=== PATIENT | male | born 1935 | race Caucasian/White ===

== ENCOUNTER 2017-06-07 10:46 | Emergency (ER) | payer BC, MEDICARE ==
[~2017-06-07] VITALS: Ht 170.2 cm; Wt 72.5 kg
[~2017-06-07 10:46] MED LIST: ALLO300T PO; ASCO10004 PO; ASPI1CPM9 PO; ATEN25TA PO; ATOR40TA78 PO; CALC1CAP8 PO; CARB1TAB22 PO; CETI10TA18 PO; ENTA200T22 PO; ESOM40CA PO; HYDR-3240 PO; MAGN100T PO; MESA1.2T PO; MULT-82 PO; PRAM3TAB PO; VITA400C43 PO; [UNRECOGNIZED DRUG - OTHER] PO; desmopressin PO; will bring a list
[2017-06-07] MEDS ORDERED: KETOROLAC 30 MG/1 ML IVPush STA (11:19)
[2017-06-07] MEDS ORDERED: SODIUM CHLORIDE 0.9% 1,000 ML IV ONE (11:19)
[2017-06-07] MEDS ORDERED: SODIUM CHLORIDE FLUSH 10ML SYR IVF ONE (11:30)
[2017-06-07] MEDS ORDERED: KETOROLAC 30 MG/1 ML ONE (11:44)
[2017-06-07 11:54] LABS: ASPARTATE AMINO TRANSFERASE 15 U/L (15-37); BLOOD UREA NITROGEN 24 mg/dL (7-18)
[2017-06-07 12:01] LABS: IS PT STATUS REG ER OR PRE ER? YES
[2017-06-07] MEDS ORDERED: OMNIPAQUE 350 MG/ML, 100ML BOTTLE ONE (12:47)
[2017-06-07 12:58] VITALS: BP 134/77
== END 2017-06-07 13:46 | disposition home or self-care (01) ==
LOC: ED 13:40
DX: R07.89 Other chest pain (principal); G20 Parkinson's disease
CPT/HCPCS: 36415; 71010; 71275; 80053; 84484; 85025; 85379; 85610; 85730; 93005; 96361; 96374; 99285; J1885; J7030; Q9967

== ENCOUNTER 2018-02-21 17:10 | Emergency (ER) | payer MEDICARE ==
[~2018-02-21] VITALS: Ht 170.2 cm; Wt 69.0 kg
[~2018-02-21 17:10] MED LIST changes: +MULT-224 PO; -MULT-82 PO
[2018-02-21 17:14] VITALS: BP 136/84
== END 2018-02-21 18:55 | disposition home or self-care (01) ==
LOC: ED 18:32
DX: S10.93XA Contusion of unspecified part of neck, initial encounter (principal); I10 Essential (primary) hypertension; G20 Parkinson's disease; Z88.8 Allergy status to other drugs, medicaments and biological substances; X58.XXXA Exposure to other specified factors, initial encounter; Y93.89 Activity, other specified; Y99.8 Other external cause status; Y92.89 Other specified places as the place of occurrence of the external cause
CPT/HCPCS: 72040; 99284

== ENCOUNTER 2018-04-05 16:52 | Emergency (ER) | payer MEDICARE ==
[~2018-04-05] VITALS: Ht 170.2 cm; Wt 70.0 kg
[2018-04-05 17:46] VITALS: BP 128/75
[2018-04-05] MEDS ORDERED: IBUPROFEN 200 MG TABLET PO ONE (19:00)
== END 2018-04-05 19:03 | disposition home or self-care (01) ==
LOC: ED 18:46
DX: S22.31XA Fracture of one rib, right side, initial encounter for closed fracture (principal); I10 Essential (primary) hypertension; G20 Parkinson's disease; W18.39XA Other fall on same level, initial encounter; Y93.89 Activity, other specified; Y92.098 Other place in other non-institutional residence as the place of occurrence of the external cause; Y99.8 Other external cause status
CPT/HCPCS: 71250; 99284

== ENCOUNTER → 2018-04-19 | Outpatient (CLI) | payer MEDICARE ==
[~2018-04-19] MED LIST changes: +ASPI1CPM7 PO; +CA C1TAB60 PO; +CARB15DR7 EACHEYE; +CYCL1DRO EACHEYE; +FLUT1DIS IH; +MOME17SP PO; +SAFI50TA PO; +SILD50TA PO; +TIOT18CA INH; +VITA100C8 PO
== END | disposition home or self-care (01) ==
LOC: CVU 13:13
PROVIDERS: ATTEND Internal Medicine Cardiovascular Disease
DX: I65.23 Occlusion and stenosis of bilateral carotid arteries (principal); I25.10 Atherosclerotic heart disease of native coronary artery without angina pectoris; G20 Parkinson's disease; E78.5 Hyperlipidemia, unspecified; I10 Essential (primary) hypertension
CPT/HCPCS: 93306; 93880

== ENCOUNTER 2018-04-29 16:09 | Emergency (ER) | payer MEDICARE ==
[~2018-04-29] VITALS: Ht 170.2 cm; Wt 67.1 kg
[~2018-04-29 16:09] MED LIST changes: -ASPI1CPM7 PO; -CA C1TAB60 PO; -CARB15DR7 EACHEYE; -CYCL1DRO EACHEYE; -FLUT1DIS IH; -MOME17SP PO; -SAFI50TA PO; -SILD50TA PO; -TIOT18CA INH; -VITA100C8 PO
[2018-04-29] MEDS ORDERED: CARBIDOPA/LEVODOPA 25 MG/100 MG TABLET PO ONE (18:30)
[2018-04-29 18:54] VITALS: BP 164/99
== END 2018-04-29 18:57 | disposition home or self-care (01) ==
LOC: ED 18:34
DX: S00.83XA Contusion of other part of head, initial encounter (principal); I10 Essential (primary) hypertension; W19.XXXA Unspecified fall, initial encounter; Y93.89 Activity, other specified; Y92.488 Other paved roadways as the place of occurrence of the external cause; Y99.8 Other external cause status
CPT/HCPCS: 70450; 99284

== ENCOUNTER 2018-05-01 19:15 | Inpatient (IN) | payer MEDICARE ==
[~2018-05-01] VITALS: Ht 152.4 cm; Wt 56.8 kg
[2018-05-01 20:21] LABS: BASOPHILS # (AUTO) 0.02 x10^3/uL (0-0.1); BASOPHILS % (AUTO) 0 % (0-1); EOSINOPHILS # (AUTO) 0.06 x10^3/uL (0-0.4); EOSINOPHILS % (AUTO) 1 % (1-7); LYMPHOCYTES # (AUTO) 1.54 x10^3/uL (1-3.4); LYMPHOCYTES % (AUTO) 13 % (22-44); MD NO; MEAN CORPUSCULAR HEMOGLOBIN 31.5 pg (27.5-34.5); MEAN CORPUSCULAR HGB CONC 34.1 g/dL (33.2-36.2); MEAN CORPUSCULAR VOLUME 92.4 fL (81-97); MEAN PLATELET VOLUME 7.7 fL (7.4-10.4); MONOCYTES # (AUTO) 0.71 x10^3/uL (0.2-0.8); MONOCYTES % (AUTO) 6 % (2-9); NEUTROPHILS # (AUTO) 9.35 x10^3/uL (1.8-6.8); NEUTROPHILS % (AUTO) 80 % (42-75); PLATELET COUNT 217 x10^3/uL (130-400); RED BLOOD COUNT 3.85 x10^6/uL (4.38-5.82); RED CELL DISTRIBUTION WIDTH 13.1 % (9.4-14.8)
[2018-05-01 20:29] LABS: INTERNATIONAL NORMALIZED RATIO 1.17 (0.93-1.1)
[2018-05-01 20:31] LABS: ALBUMIN 3.5 g/dL (3.4-5.0); ANION GAP 8 mmol/L (5-15); CALCIUM 8.1 mg/dL (8.5-10.1); CHLORIDE 107 mmol/L (98-107); CREATININE 1.45 mg/dL (0.7-1.3)
[2018-05-01] MEDS ORDERED: SODIUM CHLORIDE 0.9% 1,000 ML IV ONE (21:21)
[2018-05-01] MEDS ORDERED: ONDANSETRON 2MG/ML, 2ML IVPush PRN ×2 (21:30→23:00)
[2018-05-01] MEDS ORDERED: SAFI50TA PO (21:44)
[2018-05-01] MEDS: LEVETIRACETAM 500 MG in SODIUM CHLORIDE 0.9% 100 ML IV SCH (22:00)
[2018-05-01] MEDS ORDERED: MAGNESIUM GLYCINATE 100 MG HOMEMEDPO SCH (23:00)
[2018-05-01] MEDS ORDERED: POLYETHYLENE GLYCOL 17 GM PACKET PO PRN (23:00)
[2018-05-01] MEDS ORDERED: ACETAMINOPHEN 325 MG TABLET PO PRN (23:00)
[2018-05-02] MEDS: SODIUM CHLORIDE 0.9% 1,000 ML IV SCH ×2 (00:34→14:39)
[2018-05-02] MEDS: CARBIDOPA/LEVODOPA 25 MG/100 MG TABLET PO SCH ×6 (00:34→21:38)
[2018-05-02 04:00] VITALS: BP 138/74
[2018-05-02 04:33] LABS: BASOPHILS # (AUTO) 0.02 x10^3/uL (0-0.1); BASOPHILS % (AUTO) 0 % (0-1); EOSINOPHILS # (AUTO) 0.18 x10^3/uL (0-0.4); EOSINOPHILS % (AUTO) 2 % (1-7); LYMPHOCYTES # (AUTO) 1.77 x10^3/uL (1-3.4); LYMPHOCYTES % (AUTO) 16 % (22-44); MD NO; MEAN CORPUSCULAR HEMOGLOBIN 30.6 pg (27.5-34.5); MEAN CORPUSCULAR HGB CONC 33.1 g/dL (33.2-36.2); MEAN CORPUSCULAR VOLUME 92.3 fL (81-97); MONOCYTES # (AUTO) 0.82 x10^3/uL (0.2-0.8); MONOCYTES % (AUTO) 8 % (2-9); NEUTROPHILS # (AUTO) 7.97 x10^3/uL (1.8-6.8); NEUTROPHILS % (AUTO) 74 % (42-75); PLATELET COUNT 203 x10^3/uL (130-400); RED BLOOD COUNT 3.97 x10^6/uL (4.38-5.82)
[2018-05-02 04:44] LABS: ANION GAP 7 mmol/L (5-15); CALCIUM 8.5 mg/dL (8.5-10.1); CHLORIDE 108 mmol/L (98-107); CREATININE 1.19 mg/dL (0.7-1.3)
[2018-05-02] MEDS: hydrALAzine 20 MG/ML, 1ML IV PRN ×2 (08:42→22:29)
[2018-05-02] MEDS: MESALAMINE 1.2 GM TABLET.DR PO SCH (08:58)
[2018-05-02] MEDS: ALLOPURINOL 300 MG TABLET PO SCH (09:09)
[2018-05-02] MEDS: PANTOPROZOLE 40MG TABLET PO SCH (09:10)
[2018-05-02] MEDS: MULTIVITAMIN 1 TABLET PO SCH (09:10)
[2018-05-02] MEDS: CETIRIZINE 10 MG TABLET PO SCH ×2 (09:11→21:39)
[2018-05-02] MEDS: ATENOLOL 25 MG TABLET PO SCH (09:11)
[2018-05-02] MEDS: ASCORBIC ACID 500 MG TABLET PO SCH (09:11)
[2018-05-02] MEDS ORDERED: FLUT1DIS IH (10:58)
[2018-05-02] MEDS ORDERED: CA C1TAB60 PO (11:00)
[2018-05-02] MEDS: LEVETIRACETAM 500 MG in SODIUM CHLORIDE 0.9% 100 ML IV SCH ×2 (11:37→21:38)
[2018-05-02] MEDS ORDERED: CYCL1DRO EACHEYE (18:46)
[2018-05-02] MEDS ORDERED: SILD50TA PO (18:46)
[2018-05-02] MEDS ORDERED: ENTA200T22 PO (18:46)
[2018-05-02] MEDS ORDERED: MOME17SP PO (18:46)
[2018-05-02] MEDS ORDERED: CARB15DR7 EACHEYE (18:46)
[2018-05-02] MEDS ORDERED: VITA100C8 PO (18:46)
[2018-05-02] MEDS ORDERED: TIOT18CA INH (18:46)
[2018-05-02] MEDS ORDERED: ASPI1CPM7 PO (18:46)
[2018-05-02] MEDS: ATORVASTATIN 40 MG TABLET PO SCH (21:38)
[2018-05-03 05:00] VITALS: BP 137/71
[2018-05-03] MEDS: SODIUM CHLORIDE 0.9% 1,000 ML IV SCH ×2 (05:50→11:51)
[2018-05-03] MEDS: CARBIDOPA/LEVODOPA 25 MG/100 MG TABLET PO SCH ×5 (05:52→21:27)
[2018-05-03] MEDS: MESALAMINE 1.2 GM TABLET.DR PO SCH (09:05)
[2018-05-03] MEDS: ASCORBIC ACID 500 MG TABLET PO SCH (09:05)
[2018-05-03] MEDS: CETIRIZINE 10 MG TABLET PO SCH ×2 (09:06→21:27)
[2018-05-03] MEDS: PANTOPROZOLE 40MG TABLET PO SCH (09:06)
[2018-05-03] MEDS: MULTIVITAMIN 1 TABLET PO SCH (09:06)
[2018-05-03] MEDS: ATENOLOL 25 MG TABLET PO SCH (09:06)
[2018-05-03] MEDS: ALLOPURINOL 300 MG TABLET PO SCH (09:06)
[2018-05-03] MEDS: LEVETIRACETAM 500 MG in SODIUM CHLORIDE 0.9% 100 ML IV SCH ×2 (11:51→21:33)
[2018-05-03 12:07] VITALS: BP 156/88
[2018-05-03 19:21] VITALS: BP 149/79
[2018-05-03] MEDS: RESTASIS 0.05% OP SCH (21:00)
[2018-05-03] MEDS: ATORVASTATIN 40 MG TABLET PO SCH (21:27)
[2018-05-04 01:06] VITALS: BP 141/75
[2018-05-04] MEDS: SODIUM CHLORIDE 0.9% 1,000 ML IV SCH (02:02)
[2018-05-04] MEDS: CARBIDOPA/LEVODOPA 25 MG/100 MG TABLET PO SCH ×5 (05:29→20:51)
[2018-05-04 07:38] VITALS: BP 125/70
[2018-05-04] MEDS: ATENOLOL 25 MG TABLET PO SCH (09:14)
[2018-05-04] MEDS: PANTOPROZOLE 40MG TABLET PO SCH (09:14)
[2018-05-04] MEDS: CETIRIZINE 10 MG TABLET PO SCH ×2 (09:14→20:51)
[2018-05-04] MEDS: MULTIVITAMIN 1 TABLET PO SCH (09:14)
[2018-05-04] MEDS: ASCORBIC ACID 500 MG TABLET PO SCH (09:14)
[2018-05-04] MEDS: MESALAMINE 1.2 GM TABLET.DR PO SCH (09:14)
[2018-05-04] MEDS: LEVETIRACETAM 500 MG in SODIUM CHLORIDE 0.9% 100 ML IV SCH (09:14)
[2018-05-04] MEDS: ALLOPURINOL 300 MG TABLET PO SCH (09:15)
[2018-05-04 13:57] VITALS: BP 148/80
[2018-05-04] MEDS ORDERED: TAMSULOSIN 0.4 MG CAP.ER.24H ONE (18:24)
[2018-05-04] MEDS ORDERED: TAMSULOSIN 0.4 MG CAP.ER.24H PO ONE (18:30)
[2018-05-04 19:33] VITALS: BP 143/76
[2018-05-04] MEDS: ATORVASTATIN 40 MG TABLET PO SCH (20:51)
[2018-05-04] MEDS: RESTASIS 0.05% OP SCH (20:51)
[2018-05-05 01:26] VITALS: BP 163/88
[2018-05-05] MEDS: LEVETIRACETAM 500 MG in SODIUM CHLORIDE 0.9% 100 ML IV SCH ×2 (01:31→14:59)
[2018-05-05 05:46] LABS: BASOPHILS # (AUTO) 0.02 x10^3/uL (0-0.1); BASOPHILS % (AUTO) 0 % (0-1); EOSINOPHILS # (AUTO) 0.11 x10^3/uL (0-0.4); EOSINOPHILS % (AUTO) 1 % (1-7); LYMPHOCYTES # (AUTO) 1.57 x10^3/uL (1-3.4); LYMPHOCYTES % (AUTO) 17 % (22-44); MD NO; MEAN CORPUSCULAR HEMOGLOBIN 31.2 pg (27.5-34.5); MEAN CORPUSCULAR HGB CONC 33.4 g/dL (33.2-36.2); MEAN CORPUSCULAR VOLUME 93.2 fL (81-97); MEAN PLATELET VOLUME 7.7 fL (7.4-10.4); MONOCYTES # (AUTO) 0.59 x10^3/uL (0.2-0.8); MONOCYTES % (AUTO) 7 % (2-9); NEUTROPHILS # (AUTO) 6.84 x10^3/uL (1.8-6.8); NEUTROPHILS % (AUTO) 75 % (42-75); PLATELET COUNT 227 x10^3/uL (130-400); RED BLOOD COUNT 4.19 x10^6/uL (4.38-5.82); RED CELL DISTRIBUTION WIDTH 13.1 % (9.4-14.8)
[2018-05-05 05:56] LABS: ANION GAP 5 mmol/L (5-15); CALCIUM 8.6 mg/dL (8.5-10.1); CHLORIDE 107 mmol/L (98-107)
[2018-05-05 05:57] LABS: CREATININE 1.02 mg/dL (0.7-1.3)
[2018-05-05] MEDS: CARBIDOPA/LEVODOPA 25 MG/100 MG TABLET PO SCH ×5 (06:06→20:27)
[2018-05-05] MEDS ORDERED: POTASSIUM CHLORIDE 10% 20 MEQ/15 ML UDC PO ONE (07:00)
[2018-05-05 07:09] VITALS: BP 137/81
[2018-05-05] MEDS ORDERED: POTASSIUM CHLORIDE 20 MEQ PACKET ONE (08:34)
[2018-05-05] MEDS: MULTIVITAMIN 1 TABLET PO SCH (09:00)
[2018-05-05] MEDS: ATENOLOL 25 MG TABLET PO SCH (09:00)
[2018-05-05] MEDS: PANTOPROZOLE 40MG TABLET PO SCH (09:40)
[2018-05-05] MEDS: MESALAMINE 1.2 GM TABLET.DR PO SCH (09:40)
[2018-05-05] MEDS: ALLOPURINOL 300 MG TABLET PO SCH (09:40)
[2018-05-05] MEDS: ASCORBIC ACID 500 MG TABLET PO SCH (09:41)
[2018-05-05] MEDS: CETIRIZINE 10 MG TABLET PO SCH ×2 (09:41→20:27)
[2018-05-05 12:09] VITALS: BP 118/71
[2018-05-05] MEDS: ATORVASTATIN 40 MG TABLET PO SCH (20:27)
[2018-05-05] MEDS: RESTASIS 0.05% OP SCH (20:27)
[2018-05-05 22:00] VITALS: BP 147/83
[2018-05-05 22:36] VITALS: BP 128/86
[2018-05-06 01:38] VITALS: BP 164/96
[2018-05-06] MEDS: LEVETIRACETAM 500 MG in SODIUM CHLORIDE 0.9% 100 ML IV SCH ×2 (01:39→14:44)
[2018-05-06] MEDS: hydrALAzine 20 MG/ML, 1ML IV PRN (01:40)
[2018-05-06 03:07] VITALS: BP 126/71
[2018-05-06 05:58] LABS: ALBUMIN 2.9 g/dL (3.4-5.0); ANION GAP 5 mmol/L (5-15); CALCIUM 8.3 mg/dL (8.5-10.1); CHLORIDE 107 mmol/L (98-107); CREATININE 0.88 mg/dL (0.7-1.3)
[2018-05-06] MEDS: CARBIDOPA/LEVODOPA 25 MG/100 MG TABLET PO SCH ×5 (06:30→21:13)
[2018-05-06] MEDS ORDERED: POTASSIUM CHLORIDE 20 MEQ TAB.ER.PRT PO ONE (06:30)
[2018-05-06 07:26] VITALS: BP 110/69
[2018-05-06] MEDS: MULTIVITAMIN 1 TABLET PO SCH (09:15)
[2018-05-06] MEDS: MESALAMINE 1.2 GM TABLET.DR PO SCH (09:15)
[2018-05-06] MEDS: PANTOPROZOLE 40MG TABLET PO SCH (09:15)
[2018-05-06] MEDS: ALLOPURINOL 300 MG TABLET PO SCH (09:16)
[2018-05-06] MEDS: ASCORBIC ACID 500 MG TABLET PO SCH (09:16)
[2018-05-06] MEDS: CETIRIZINE 10 MG TABLET PO SCH ×2 (09:16→21:09)
[2018-05-06] MEDS: ATENOLOL 25 MG TABLET PO SCH (09:20)
[2018-05-06 12:26] VITALS: BP 122/76
[2018-05-06 19:35] VITALS: BP 128/71
[2018-05-06] MEDS: RESTASIS 0.05% OP SCH (21:00)
[2018-05-06] MEDS: ATORVASTATIN 40 MG TABLET PO SCH (21:09)
[2018-05-07 01:17] VITALS: BP 157/88
[2018-05-07] MEDS: LEVETIRACETAM 500 MG in SODIUM CHLORIDE 0.9% 100 ML IV SCH (02:25)
[2018-05-07] MEDS: hydrALAzine 20 MG/ML, 1ML IV PRN (02:25)
[2018-05-07 03:45] VITALS: BP 130/70
[2018-05-07 05:26] LABS: ALBUMIN 3.2 g/dL (3.4-5.0); ANION GAP 9 mmol/L (5-15); CALCIUM 8.7 mg/dL (8.5-10.1); CHLORIDE 106 mmol/L (98-107)
[2018-05-07 05:27] LABS: CREATININE 0.94 mg/dL (0.7-1.3)
[2018-05-07] MEDS: CARBIDOPA/LEVODOPA 25 MG/100 MG TABLET PO SCH ×2 (05:40→09:52)
[2018-05-07 07:54] VITALS: BP 105/56
[2018-05-07] MEDS: ATENOLOL 25 MG TABLET PO SCH (09:00)
[2018-05-07] MEDS: ALLOPURINOL 300 MG TABLET PO SCH (09:00)
[2018-05-07] MEDS: PANTOPROZOLE 40MG TABLET PO SCH (09:50)
[2018-05-07] MEDS: ASCORBIC ACID 500 MG TABLET PO SCH (09:51)
[2018-05-07] MEDS: CETIRIZINE 10 MG TABLET PO SCH (09:54)
[2018-05-07] MEDS: MULTIVITAMIN 1 TABLET PO SCH (09:55)
[2018-05-07] MEDS: MESALAMINE 1.2 GM TABLET.DR PO SCH (09:56)
[2018-05-07] MEDS ORDERED: LEVE500T53 PO (11:33)
[2018-05-07 13:02] VITALS: BP 143/72
[2018-05-07 14:21] VITALS: BP 116/73
== END 2018-05-07 16:14 | DRG 85 ==
LOC: ED 20:20 → EDIP 21:23 → CCU 23:10 → 4WST 05-03 11:26
PROVIDERS: ADMIT Hospitalist; ATTEND Hospitalist
PROC: 4B00XVZ Measurement of Central Nervous Stimulator, External Approach (ICD-10-PCS; principal; 2018-05-02)
DX: S06.5X0A Traumatic subdural hemorrhage without loss of consciousness, initial encounter (principal); N17.0 Acute kidney failure with tubular necrosis; E44.0 Moderate protein-calorie malnutrition; R47.01 Aphasia; G20 Parkinson's disease; Z87.891 Personal history of nicotine dependence; Z88.8 Allergy status to other drugs, medicaments and biological substances; Z68.24 Body mass index [BMI] 24.0-24.9, adult; I10 Essential (primary) hypertension; K21.9 Gastro-esophageal reflux disease without esophagitis; M10.9 Gout, unspecified; R29.6 Repeated falls; W18.39XA Other fall on same level, initial encounter; Y93.89 Activity, other specified; Y92.89 Other specified places as the place of occurrence of the external cause; Y99.8 Other external cause status; Z90.79 Acquired absence of other genital organ(s); R33.9 Retention of urine, unspecified
CPT/HCPCS: 36415; 70450; 80047; 80048; 82040; 83735; 84100; 85025; 85520; 85610; 85730; 87081; 93005; 99291; J1953; 92523-GN; G0515-GN; J0360; J7030

== ENCOUNTER 2018-06-08 21:26 | Inpatient (IN) | payer MEDICARE ==
[~2018-06-08] VITALS: Ht 170.2 cm; Wt 67.4 kg
[~2018-06-08 21:26] MED LIST changes: +ASPI1CPM7 PO; +CA C1TAB60 PO; +CARB15DR7 EACHEYE; +CYCL1DRO EACHEYE; +FLUT1DIS IH; +LEVE500T53 PO; +MOME17SP PO; +SAFI50TA PO; +SILD50TA PO; +TIOT18CA INH; +VITA100C8 PO
[2018-06-08] MEDS ORDERED: ACETAMINOPHEN 650 MG SUPP PR PRN (22:00)
[2018-06-08] MEDS ORDERED: SODIUM CHLORIDE 0.9% 1,000ML IVBOLUS ONE (22:00)
[2018-06-08] MEDS ORDERED: PIPERACILLIN/TAZO/PMX 3.375GM 50 ML IVPB ONE (22:00)
[2018-06-08] MEDS ORDERED: VANCOMYCIN PER PHARMACY MC ONE (22:00)
[2018-06-08 22:17] LABS: MEAN CORPUSCULAR HGB CONC 33.9 g/dL (33.2-36.2); MEAN CORPUSCULAR VOLUME 91.5 fL (81-97); MEAN PLATELET VOLUME 7.6 fL (7.4-10.4); PLATELET COUNT 169 x10^3/uL (130-400); RED BLOOD COUNT 3.79 x10^6/uL (4.38-5.82); RED CELL DISTRIBUTION WIDTH 14.1 % (9.4-14.8)
[2018-06-08] MEDS ORDERED: ACETAMINOPHEN 650 MG SUPP ONE (22:28)
[2018-06-08 22:29] LABS: ALANINE AMINOTRANSFERASE 12 U/L (12-78); ALBUMIN 2.6 g/dL (3.4-5.0); ANION GAP 4 mmol/L (5-15); CALCIUM 7.8 mg/dL (8.5-10.1); CHLORIDE 111 mmol/L (98-107); CREATININE 1.43 mg/dL (0.7-1.3)
[2018-06-08] MEDS ORDERED: PHARMACOKINETIC CONSULTATION MC ONE (22:30)
[2018-06-08] MEDS ORDERED: VANCOMYCIN 1,400 MG in SODIUM CHLORIDE 0.9% 250 ML IV ONE (22:30)
[2018-06-08] MEDS ORDERED: PIPERACILLIN/TAZO/PMX 3.375GM 50 ML ONE (22:31)
[2018-06-08 22:33] LABS: ALKALINE PHOSPHATASE 86 U/L (45-117); BILIRUBIN,TOTAL 0.6 mg/dL (0.2-1.0); TOTAL PROTEIN 5.5 g/dL (6.4-8.2); TROPONIN I 0.041 ng/mL (0.000-0.045)
[2018-06-08 22:33] LABS: MICROSCOPIC AUTO
[2018-06-08 22:44] LABS: CULTURE INDICATED? YES
[2018-06-08 22:49] LABS: BASOPHILS % (AUTO) 0 % (0-1); EOSINOPHILS % (AUTO) 0 % (1-7); LYMPHOCYTES # (AUTO) 0.34 x10^3/uL (1-3.4); LYMPHOCYTES % (AUTO) 2 % (22-44); MD SCAN; MONOCYTES # (AUTO) 0.15 x10^3/uL (0.2-0.8); MONOCYTES % (AUTO) 1 % (2-9); NEUTROPHILS # (AUTO) 17.86 x10^3/uL (1.8-6.8); NEUTROPHILS % (AUTO) 97 % (42-75)
[2018-06-08] MEDS ORDERED: SODIUM CHLORIDE 0.9% 1,000 ML IV ONE (23:32)
[2018-06-09] MEDS ORDERED: CALC300T5 PO (00:10)
[2018-06-09] MEDS ORDERED: OMEP-110 PO (00:10)
[2018-06-09] MEDS ORDERED: CETI10CA PO (00:10)
[2018-06-09] MEDS ORDERED: SODIUM CHLORIDE 0.9% 1,000 ML IV ONE (01:10)
[2018-06-09] MEDS ORDERED: BISACODYL 10 MG SUPP PR PRN (01:30)
[2018-06-09] MEDS ORDERED: ACETAMINOPHEN 325 MG TABLET PO PRN (01:30)
[2018-06-09] MEDS ORDERED: morphine SULFATE 10 MG/ML, 1ML IVPush PRN (01:30)
[2018-06-09] MEDS ORDERED: OXYcodone IR 5MG TABLET PO PRN (01:30)
[2018-06-09] MEDS ORDERED: ONDANSETRON 2MG/ML, 2ML IVPush PRN ×2 (01:30)
[2018-06-09] MEDS ORDERED: ENALAPRILAT 1.25 MG/ML, 2ML IVPush PRN (01:30)
[2018-06-09] MEDS ORDERED: POLYETHYLENE GLYCOL 17 GM PACKET PO PRN (01:30)
[2018-06-09] MEDS ORDERED: ONDANSETRON ODT 4 MG PO PRN (01:30)
[2018-06-09] MEDS ORDERED: LABETALOL 5MG/ML, 20ML IVPush PRN (01:30)
[2018-06-09] MEDS ORDERED: PROMETHAZINE 25 MG/ML, 1ML IM PRN (01:30)
[2018-06-09] MEDS ORDERED: DOCUSATE 100 MG CAPSULE PO PRN (01:30)
[2018-06-09] MEDS ORDERED: IPRATROPIUM 0.5 MG/2.5 ML INHA ONE (01:57)
[2018-06-09] MEDS ORDERED: ENTACAPONE 200 MG PO SCH (02:00)
[2018-06-09] MEDS ORDERED: CARBIDOPA/LEVODOPA 25 MG/100 MG TABLET PO SCH (02:00)
[2018-06-09] MEDS ORDERED: VANCOMYCIN PER PHARMACY MC PRN (02:00)
[2018-06-09 02:10] LABS: HEMOGLOBIN A1C 6.2 % (4.2-6.3)
[2018-06-09 02:12] LABS: FREE T4 (FREE THYROXINE) 1.25 ng/dL (0.76-1.46); THYROID STIMULATING HORMONE 1.44 mIU/L (0.358-3.740)
[2018-06-09] MEDS ORDERED: ENTACAPONE MC SCH (04:00)
[2018-06-09] MEDS ORDERED: PHARMACOKINETIC CONSULTATION MC ONE (04:00)
[2018-06-09] MEDS ORDERED: PHARMACOKINETIC MONITORING MC PRN (04:00)
[2018-06-09] MEDS: POTASSIUM CHLORIDE 40 MEQ in D5%-0.9% NACL 1,000 ML IV SCH ×3 (04:07→15:06)
[2018-06-09] MEDS: PIPERACILLIN/TAZO/PMX 3.375GM 50 ML IV SCH ×4 (04:31→22:19)
[2018-06-09] MEDS: IPRATROPIUM 0.5 MG/2.5 ML INHA NPPB SCH ×4 (06:20→20:51)
[2018-06-09] MEDS: HEPARIN 5,000 UNITS/ML, 1ML SQ SCH ×2 (08:00→17:17)
[2018-06-09] MEDS ORDERED: LEVETIRACETAM 500 MG TABLET PO SCH (09:00)
[2018-06-09] MEDS: MESALAMINE 1.2 GM TABLET.DR PO SCH (09:00)
[2018-06-09] MEDS ORDERED: MULTIVITAMIN 1 TABLET PO SCH (09:00)
[2018-06-09] MEDS ORDERED: CALCIUM/VITAMIN D3 250-125 TABLET PO SCH (09:00)
[2018-06-09] MEDS ORDERED: TEMPLATE NON-FORMULARY MED. (Esomeprazole Magnesium** (Nexium**) 40 MG) PO SCH (09:00)
[2018-06-09] MEDS ORDERED: ALLOPURINOL 300 MG TABLET PO SCH (09:00)
[2018-06-09] MEDS: FLUTICASONE/VILANTEROL 100-25MCG/INH INH SCH (09:00)
[2018-06-09] MEDS ORDERED: IPRATROPIUM 0.5 MG/2.5 ML INHA HHN SCH (09:00)
[2018-06-09] MEDS ORDERED: ASCORBIC ACID 500 MG TABLET PO SCH (09:00)
[2018-06-09] MEDS ORDERED: CALCIUM CARBONATE 500 MG TAB.CHEW PO SCH (09:00)
[2018-06-09] MEDS ORDERED: CETIRIZINE 10 MG TABLET PO SCH ×2 (09:00)
[2018-06-09] MEDS ORDERED: OMEPRAZOLE 20 MG CAPSULE.DR PO SCH (09:00)
[2018-06-09] MEDS: VITAMIN E 400 UNITS CAPSULE PO SCH (12:08)
[2018-06-09] MEDS ORDERED: ONDANSETRON ODT 4 MG NG PRN (12:42)
[2018-06-09] MEDS ORDERED: POLYETHYLENE GLYCOL 17 GM PACKET NG PRN (12:42)
[2018-06-09] MEDS ORDERED: ACETAMINOPHEN 650 MG/20.3 ML UDC NG PRN (13:00)
[2018-06-09] MEDS: ENTACAPONE 200 MG TABLET NG SCH ×3 (13:25→20:21)
[2018-06-09 14:22] LABS: MEAN CORPUSCULAR HEMOGLOBIN 30.5 pg (27.5-34.5); MEAN CORPUSCULAR HGB CONC 33.3 g/dL (33.2-36.2); MEAN CORPUSCULAR VOLUME 91.7 fL (81-97); PLATELET COUNT 161 x10^3/uL (130-400); RED BLOOD COUNT 3.76 x10^6/uL (4.38-5.82); RED CELL DISTRIBUTION WIDTH 14.3 % (9.4-14.8)
[2018-06-09 14:33] LABS: ALANINE AMINOTRANSFERASE 21 U/L (12-78); ALBUMIN 2.4 g/dL (3.4-5.0); ANION GAP 7 mmol/L (5-15); CALCIUM 7.7 mg/dL (8.5-10.1); CHLORIDE 114 mmol/L (98-107)
[2018-06-09 14:43] LABS: ALKALINE PHOSPHATASE 80 U/L (45-117); BILIRUBIN,TOTAL 0.5 mg/dL (0.2-1.0); CREATININE 1.23 mg/dL (0.7-1.3); TOTAL PROTEIN 5.6 g/dL (6.4-8.2)
[2018-06-09 15:22] LABS: MD YES
[2018-06-09 15:24] LABS: BAND#(MANUAL) 1.19 x10^3/uL; BANDS%(MANUAL) 6 % (0-7); LYMPH#(MANUAL) 0.99 x10^3/uL (1-3.4); LYMPHS% (MANUAL) 5 % (22-44); SEG#(MANUAL) 17.62 x10^3/uL (1.8-6.8); SEGS% (MANUAL) 89 % (42-75)
[2018-06-09 15:25] LABS: <PLATELET ESTIMATE> ADEQUATE; <PLT MORPHOLOGY> NORMAL PLT MORPH; TOXIC GRAN 1+
[2018-06-09] MEDS: CARBIDOPA/LEVODOPA 25 MG/100 MG TABLET NG SCH ×3 (17:42→20:20)
[2018-06-09] MEDS: CALCIUM/VITAMIN D3 250-125 TABLET NG SCH (20:23)
[2018-06-09] MEDS: CALCIUM CARBONATE 500 MG TAB.CHEW NG SCH (20:24)
[2018-06-09] MEDS: ATORVASTATIN 40 MG TABLET NG SCH (20:26)
[2018-06-09] MEDS: TEMPLATE NON-FORMULARY MED. (Cyclosporine (Restasis) 1 DROP) EACHEYE SCH (20:26)
[2018-06-09] MEDS ORDERED: DOCUSATE 50 MG/5 ML, 10ML UDC NG PRN (21:00)
[2018-06-09] MEDS ORDERED: LEVETIRACETAM 100 MG/ML ORAL SOL NG SCH (21:00)
[2018-06-09] MEDS ORDERED: POTASSIUM PHOSPHATE 44 MEQ in SODIUM CHLORIDE 0.9% 500 ML IV ONE (22:00)
[2018-06-09] MEDS ORDERED: MAGNESIUM SULFATE 4 GM in SODIUM CHLORIDE 0.9% 100 ML IV ONE (22:00)
[2018-06-09] MEDS ORDERED: MAGNESIUM SULFATE PMX 4GM/100M 100 ML IV ONE (22:39)
[2018-06-09] MEDS ORDERED: VANCOMYCIN 1,300 MG in SODIUM CHLORIDE 0.9% 250 ML IV SCH (23:00)
[2018-06-10] MEDS: HEPARIN 5,000 UNITS/ML, 1ML SQ SCH ×2 (01:25→07:55)
[2018-06-10] MEDS: IPRATROPIUM 0.5 MG/2.5 ML INHA NPPB SCH ×5 (02:56→21:50)
[2018-06-10 04:59] LABS: ALANINE AMINOTRANSFERASE 10 U/L (12-78); ALBUMIN 2.4 g/dL (3.4-5.0); ANION GAP 6 mmol/L (5-15); CALCIUM 8.2 mg/dL (8.5-10.1); CHLORIDE 115 mmol/L (98-107); CREATININE 1.13 mg/dL (0.7-1.3)
[2018-06-10 05:00] LABS: BASOPHILS % (AUTO) 0 % (0-1); EOSINOPHILS # (AUTO) 0.03 x10^3/uL (0-0.4); EOSINOPHILS % (AUTO) 0 % (1-7); LYMPHOCYTES # (AUTO) 0.65 x10^3/uL (1-3.4); LYMPHOCYTES % (AUTO) 5 % (22-44); MD NO; MEAN CORPUSCULAR HEMOGLOBIN 30.8 pg (27.5-34.5); MEAN CORPUSCULAR HGB CONC 33.5 g/dL (33.2-36.2); MEAN PLATELET VOLUME 8.4 fL (7.4-10.4); MONOCYTES # (AUTO) 0.38 x10^3/uL (0.2-0.8); MONOCYTES % (AUTO) 3 % (2-9); NEUTROPHILS # (AUTO) 11.76 x10^3/uL (1.8-6.8); NEUTROPHILS % (AUTO) 92 % (42-75); PLATELET COUNT 151 x10^3/uL (130-400); RED CELL DISTRIBUTION WIDTH 14.2 % (9.4-14.8)
[2018-06-10 05:02] LABS: ALKALINE PHOSPHATASE 85 U/L (45-117); BILIRUBIN,TOTAL 0.6 mg/dL (0.2-1.0); CHOL/HDL RATIO 2.7; CHOLESTEROL, TOTAL 76 mg/dL (140-239); HDL CHOL % 37 % (26-37); HDL CHOLESTEROL (DIRECT) 28 mg/dL (40-60); LDL CHOLESTEROL,CALCULATED 22 mg/dL (54-169); LDL/HDL RATIO 0.8 (0.5-3.0); TOTAL PROTEIN 5.7 g/dL (6.4-8.2); TRIGLYCERIDES 129 mg/dL (50-200); VLDL CHOLESTEROL 26 mg/dL (0-25)
[2018-06-10] MEDS: PIPERACILLIN/TAZO/PMX 3.375GM 50 ML IV SCH ×2 (05:37→11:35)
[2018-06-10] MEDS: CARBIDOPA/LEVODOPA 25 MG/100 MG TABLET NG SCH ×5 (05:42→21:03)
[2018-06-10] MEDS: ENTACAPONE 200 MG TABLET NG SCH ×5 (05:42→21:03)
[2018-06-10] MEDS ORDERED: PANTOPRAZOLE GRAN. PKT 40 MG NG SCH (07:30)
[2018-06-10] MEDS: ALLOPURINOL 300 MG TABLET NG SCH (08:58)
[2018-06-10] MEDS: CALCIUM/VITAMIN D3 250-125 TABLET NG SCH ×2 (08:58→21:03)
[2018-06-10] MEDS: VITAMIN E 400 UNITS CAPSULE PO SCH (08:58)
[2018-06-10] MEDS: CALCIUM CARBONATE 500 MG TAB.CHEW NG SCH ×2 (08:58→21:03)
[2018-06-10] MEDS: MESALAMINE 1.2 GM TABLET.DR PO SCH (08:58)
[2018-06-10] MEDS: ASCORBIC ACID 500 MG TABLET NG SCH (08:59)
[2018-06-10] MEDS: FLUTICASONE/VILANTEROL 100-25MCG/INH INH SCH (09:00)
[2018-06-10] MEDS: CETIRIZINE 1 MG/ML ORAL SOL NG SCH (09:01)
[2018-06-10] MEDS: MULTIVIT-MINERALS/IRON ORAL SOL NG SCH (09:01)
[2018-06-10] MEDS: TAMSULOSIN 0.4 MG CAP.ER.24H PO SCH (16:25)
[2018-06-10] MEDS: CEFTRIAXONE 2 GM in SODIUM CHLORIDE 0.9% 50 ML IV SCH (17:14)
[2018-06-10] MEDS: ENOXAPARIN 40 MG/0.4 ML SQ SCH (17:14)
[2018-06-10 19:40] VITALS: BP 129/81
[2018-06-10] MEDS: TEMPLATE NON-FORMULARY MED. (Cyclosporine (Restasis) 1 DROP) EACHEYE SCH (21:00)
[2018-06-10] MEDS: ATORVASTATIN 40 MG TABLET NG SCH (21:03)
[2018-06-11 00:20] VITALS: BP 109/76
[2018-06-11] MEDS ORDERED: HALOPERIDOL 5 MG/ML IV ONE (01:00)
[2018-06-11] MEDS: IPRATROPIUM 0.5 MG/2.5 ML INHA NPPB SCH ×4 (03:50→20:30)
[2018-06-11] MEDS: CARBIDOPA/LEVODOPA 25 MG/100 MG TABLET NG SCH ×2 (05:35→10:11)
[2018-06-11] MEDS: ENTACAPONE 200 MG TABLET NG SCH ×2 (05:36→10:17)
[2018-06-11 06:03] LABS: BASOPHILS # (AUTO) 0.01 x10^3/uL (0-0.1); BASOPHILS % (AUTO) 0 % (0-1); EOSINOPHILS # (AUTO) 0.04 x10^3/uL (0-0.4); EOSINOPHILS % (AUTO) 0 % (1-7); LYMPHOCYTES # (AUTO) 0.75 x10^3/uL (1-3.4); LYMPHOCYTES % (AUTO) 8 % (22-44); MD NO; MEAN CORPUSCULAR HEMOGLOBIN 30.4 pg (27.5-34.5); MEAN CORPUSCULAR HGB CONC 33.4 g/dL (33.2-36.2); MEAN CORPUSCULAR VOLUME 91.1 fL (81-97); MEAN PLATELET VOLUME 8.5 fL (7.4-10.4); MONOCYTES # (AUTO) 0.43 x10^3/uL (0.2-0.8); MONOCYTES % (AUTO) 4 % (2-9); NEUTROPHILS # (AUTO) 8.68 x10^3/uL (1.8-6.8); NEUTROPHILS % (AUTO) 88 % (42-75); PLATELET COUNT 158 x10^3/uL (130-400); RED BLOOD COUNT 3.95 x10^6/uL (4.38-5.82); RED CELL DISTRIBUTION WIDTH 14.4 % (9.4-14.8)
[2018-06-11 06:05] LABS: CHLORIDE 109 mmol/L (98-107)
[2018-06-11 06:21] LABS: ALANINE AMINOTRANSFERASE 13 U/L (12-78); ALBUMIN 2.5 g/dL (3.4-5.0); ALKALINE PHOSPHATASE 111 U/L (45-117); ANION GAP 10 mmol/L (5-15); BILIRUBIN,TOTAL 0.4 mg/dL (0.2-1.0); CALCIUM 8.1 mg/dL (8.5-10.1); CREATININE 1.16 mg/dL (0.7-1.3); TOTAL PROTEIN 5.8 g/dL (6.4-8.2)
[2018-06-11 07:13] VITALS: BP 140/73
[2018-06-11] MEDS: CETIRIZINE 1 MG/ML ORAL SOL NG SCH (09:00)
[2018-06-11] MEDS: CALCIUM CARBONATE 500 MG TAB.CHEW NG SCH (09:00)
[2018-06-11] MEDS: FLUTICASONE/VILANTEROL 100-25MCG/INH INH SCH (09:00)
[2018-06-11] MEDS: CALCIUM/VITAMIN D3 250-125 TABLET NG SCH (09:00)
[2018-06-11] MEDS: ALLOPURINOL 300 MG TABLET NG SCH (09:00)
[2018-06-11] MEDS: VITAMIN E 400 UNITS CAPSULE PO SCH (09:00)
[2018-06-11] MEDS: MULTIVIT-MINERALS/IRON ORAL SOL NG SCH (09:00)
[2018-06-11] MEDS: ASCORBIC ACID 500 MG TABLET NG SCH (09:00)
[2018-06-11] MEDS: TAMSULOSIN 0.4 MG CAP.ER.24H PO SCH (10:11)
[2018-06-11] MEDS: MESALAMINE 1.2 GM TABLET.DR PO SCH (10:11)
[2018-06-11] MEDS: SODIUM CHLORIDE 0.9% 1,000 ML IV SCH ×2 (11:03→19:23)
[2018-06-11] MEDS ORDERED: ONDANSETRON ODT 4 MG PO PRN (12:09)
[2018-06-11] MEDS ORDERED: POLYETHYLENE GLYCOL 17 GM PACKET PO PRN (12:30)
[2018-06-11] MEDS ORDERED: ACETAMINOPHEN 325 MG TABLET PO PRN (12:30)
[2018-06-11] MEDS ORDERED: DOCUSATE 100 MG CAPSULE PO PRN (12:30)
[2018-06-11 12:46] VITALS: BP 134/74
[2018-06-11] MEDS: ENTACAPONE 200 MG TABLET PO SCH ×4 (15:17→20:35)
[2018-06-11] MEDS: CARBIDOPA/LEVODOPA 25 MG/100 MG TABLET PO SCH ×4 (15:17→20:36)
[2018-06-11] MEDS: CEFTRIAXONE 2 GM in SODIUM CHLORIDE 0.9% 50 ML IV SCH (17:12)
[2018-06-11] MEDS: ENOXAPARIN 40 MG/0.4 ML SQ SCH (17:12)
[2018-06-11] MEDS: LORazepam 2 MG/ML, 1ML IVPush PRN (17:22)
[2018-06-11 19:49] VITALS: BP 144/81
[2018-06-11] MEDS ORDERED: HALOPERIDOL 5 MG/ML IV PRN (20:30)
[2018-06-11] MEDS: CALCIUM CARBONATE 500 MG TAB.CHEW PO SCH (20:36)
[2018-06-11] MEDS: CALCIUM/VITAMIN D3 250-125 TABLET PO SCH (20:36)
[2018-06-11] MEDS: TEMPLATE NON-FORMULARY MED. (Cyclosporine (Restasis) 1 DROP) EACHEYE SCH ×2 (20:37→20:38)
[2018-06-11] MEDS ORDERED: ATORVASTATIN 40 MG TABLET PO SCH (21:00)
[2018-06-12 02:12] VITALS: BP 140/65
[2018-06-12] MEDS: IPRATROPIUM 0.5 MG/2.5 ML INHA NPPB SCH ×2 (02:30→10:20)
[2018-06-12] MEDS: LORazepam 2 MG/ML, 1ML IVPush PRN ×3 (02:42→22:42)
[2018-06-12] MEDS: SODIUM CHLORIDE 0.9% 1,000 ML IV SCH ×2 (03:13→12:32)
[2018-06-12 05:57] LABS: BASOPHILS % (AUTO) 0 % (0-1); EOSINOPHILS % (AUTO) 0 % (1-7); LYMPHOCYTES # (AUTO) 0.61 x10^3/uL (1-3.4); LYMPHOCYTES % (AUTO) 6 % (22-44); MD NO; MEAN CORPUSCULAR HEMOGLOBIN 30.6 pg (27.5-34.5); MEAN CORPUSCULAR HGB CONC 33.5 g/dL (33.2-36.2); MEAN CORPUSCULAR VOLUME 91.6 fL (81-97); MEAN PLATELET VOLUME 8.2 fL (7.4-10.4); MONOCYTES # (AUTO) 0.27 x10^3/uL (0.2-0.8); MONOCYTES % (AUTO) 3 % (2-9); NEUTROPHILS # (AUTO) 8.82 x10^3/uL (1.8-6.8); NEUTROPHILS % (AUTO) 91 % (42-75); PLATELET COUNT 168 x10^3/uL (130-400); RED BLOOD COUNT 4.21 x10^6/uL (4.38-5.82); RED CELL DISTRIBUTION WIDTH 14.4 % (9.4-14.8)
[2018-06-12] MEDS: ENTACAPONE 200 MG TABLET PO SCH ×4 (06:00→17:27)
[2018-06-12] MEDS: CARBIDOPA/LEVODOPA 25 MG/100 MG TABLET PO SCH ×4 (06:00→17:27)
[2018-06-12 06:08] LABS: ALBUMIN 2.9 g/dL (3.4-5.0); ANION GAP 11 mmol/L (5-15); CHLORIDE 107 mmol/L (98-107)
[2018-06-12 06:09] LABS: CREATININE 0.94 mg/dL (0.7-1.3)
[2018-06-12 07:18] VITALS: BP 160/82
[2018-06-12] MEDS: MESALAMINE 1.2 GM TABLET.DR PO SCH (09:00)
[2018-06-12] MEDS ORDERED: MULTIVITAMINS WITH IRON TABLET PO SCH (09:00)
[2018-06-12] MEDS: VITAMIN E 400 UNITS CAPSULE PO SCH (09:00)
[2018-06-12] MEDS ORDERED: CETIRIZINE 1 MG/ML ORAL SOL PO SCH (09:00)
[2018-06-12] MEDS: CALCIUM/VITAMIN D3 250-125 TABLET PO SCH (09:00)
[2018-06-12] MEDS ORDERED: ASCORBIC ACID 500 MG TABLET PO SCH (09:00)
[2018-06-12] MEDS ORDERED: ALLOPURINOL 300 MG TABLET PO SCH (09:00)
[2018-06-12] MEDS: CALCIUM CARBONATE 500 MG TAB.CHEW PO SCH (09:00)
[2018-06-12] MEDS: FLUTICASONE/VILANTEROL 100-25MCG/INH INH SCH (09:00)
[2018-06-12] MEDS: TAMSULOSIN 0.4 MG CAP.ER.24H PO SCH (09:00)
[2018-06-12 09:10] VITALS: BP 173/97
[2018-06-12] MEDS: hydrALAzine 20 MG/ML, 1ML IVPush PRN ×2 (09:16→16:35)
[2018-06-12 09:49] VITALS: BP 184/93
[2018-06-12 09:52] VITALS: BP 153/83
[2018-06-12 12:43] VITALS: BP 168/88
[2018-06-12] MEDS ORDERED: ENALAPRILAT 1.25 MG/ML, 2ML IV PRN (16:30)
[2018-06-12] MEDS ORDERED: DEXAMETHASONE 4 MG/ML, 1ML IVPush SCH (17:00)
[2018-06-12] MEDS: CEFTRIAXONE 2 GM in SODIUM CHLORIDE 0.9% 50 ML IV SCH (17:00)
[2018-06-12] MEDS ORDERED: ATROPINE OPHTH SOLN 1%, 5ML BC PRN (18:30)
[2018-06-12] MEDS ORDERED: SCOPOLAMINE PATCH, 1.5MG PATCH.TD72 TD PRN ×2 (18:30)
[2018-06-12] MEDS ORDERED: IPRATROPIUM 0.5 MG/2.5 ML INHA NPPB SCH (21:00)
[2018-06-13] MEDS: LORazepam 2 MG/ML, 1ML IVPush PRN ×3 (11:06→16:16)
[2018-06-13] MEDS ORDERED: LORAZEPAM IV PRN (15:30)
[2018-06-13] MEDS ORDERED: SODIUM CHLORIDE 0.9% IV PRN (15:30)
== END 2018-06-13 23:20 | disposition expired | DRG 871 ==
LOC: ED 21:41 → EDIP 23:32 → CCU 06-09 03:31 → 4EST 06-10 17:43 → 3NW 06-12 18:20
PROVIDERS: ADMIT Internal Medicine; ATTEND Internal Medicine
PROC: 0T9B70Z Drainage of Bladder with Drainage Device, Via Natural or Artificial Opening (ICD-10-PCS; principal; 2018-06-08)
DX: A41.9 Sepsis, unspecified organism (principal); G93.41 Metabolic encephalopathy; E43 Unspecified severe protein-calorie malnutrition; J96.01 Acute respiratory failure with hypoxia; J15.9 Unspecified bacterial pneumonia; I62.01 Nontraumatic acute subdural hemorrhage; I63.9 Cerebral infarction, unspecified; R64 Cachexia; J44.0 Chronic obstructive pulmonary disease with (acute) lower respiratory infection; N12 Tubulo-interstitial nephritis, not specified as acute or chronic; D64.9 Anemia, unspecified; I10 Essential (primary) hypertension; G20 Parkinson's disease; E78.5 Hyperlipidemia, unspecified; K21.9 Gastro-esophageal reflux disease without esophagitis; B96.1 Klebsiella pneumoniae [K. pneumoniae] as the cause of diseases classified elsewhere; M10.9 Gout, unspecified; N30.91 Cystitis, unspecified with hematuria; Z51.5 Encounter for palliative care; E87.6 Hypokalemia; E86.0 Dehydration; Z79.899 Other long term (current) drug therapy; Z79.1 Long term (current) use of non-steroidal anti-inflammatories (NSAID); Z79.2 Long term (current) use of antibiotics; Z88.8 Allergy status to other drugs, medicaments and biological substances; Z68.23 Body mass index [BMI] 23.0-23.9, adult; Z91.81 History of falling
CPT/HCPCS: 36415; 70450; 71045; 80048; 80053; 80061; 81001; 82040; 82533; 83036; 83605; 83735; 84100; 84145; 84439; 84443; 84484; 85025; 87040; 87077; 87081; 87086; 87186; 93005; 94640; 96361; 96365; 96366; J0696; J1644; J1650; J2060; J2270; J2543; J3370; J3480; J7042; J7644; J0360; J1630; J3475; J7030; J7040; J7050